=== PATIENT | female | born 1980 | race Caucasian/White ===

== ENCOUNTER → 2018-07-12 14:25 | Outpatient (CLI) | payer BC, MEDICAID, SELFPAY ==
--- NOTE | 2018-07-12 14:30 | MRI_ITS ---
STUDY: MRI BRAIN WITH AND WITHOUT CONTRAST REASON FOR EXAM: Female, 37 years old. optic neuritis, LOSS OF VISION R EYE AFTER HAVING MIGRAINE 07/06/18 No known TECHNIQUE: Standardized multiplanar fat and water weighted pulse sequences were obtained. 7 ml of Gadavist contrast material was administered intravenously for the contrast portion of the examination. # of Images: 334 COMPARISON: None. FINDINGS: Normal size of the ventricles and extra-axial spaces for the patient's age. Normal white matter tracts of the supratentorial brain. Normal bilateral basal ganglia. Normal thalami. There is no extra-axial fluid accumulation. Normal flow voids within the major intracranial circulation suggesting patency by spin echo criteria. Normal venous enhancement. There is no enhancing intra-axial or extra-axial abnormality. Normal sella turcica, pituitary gland, infundibular stalk, optic chiasm and hypothalamus. Normal tectal plate and pineal gland. Normal midbrain, laura and medulla. Normal cerebellum. Normal basal cisterns. Normal bilateral temporal bones. Normal bilateral internal auditory canals. No demonstrated orbital abnormality, within the constraints of a routine brain study. There is mucoperiosteal inflammatory disease of the paranasal sinuses consistent with mild chronic sinusitis. Normal calvarium and skull base. Normal visualized soft tissue structures. Normal visualized upper cervical spine. MRI/Brain W/WO Contrast IMPRESSION: There is mucoperiosteal inflammatory disease of the paranasal sinuses consistent with mild chronic sinusitis. There is no abnormal enhancement of the right optic nerve. There is no evidence of acute or subacute ischemic lesion. Electronically Signed: Kwasi Rose MD at 10:42 EDT Tel , Service support ,
[2018-07-12 16:14] LABS: Absolute Lymphocyte Count 2.35 X10^3/ul (0.83-4.51); Absolute Neutrophil Count 5.7 X10^3/uL (2.0-7.7); Basophil# 0.02 X10^3/uL; Basophil% 0.2 % (0-1); Eosinophil# 0.12 X10^3/uL; Eosinophils% 1.4 % (0-5); Hematocrit 39.1 % (37-47); Hemoglobin 12.9 g/dl (12.0-15.0); Lymphocyte # 2.35 X10^3/ul (4.0); Lymphocyte % 26.6 % (19-41); Mean Corpuscular Hgb 28.1 pg (27.0-32.0); Mean Corpuscular Volume 85.2 fL (81-99); Mean Platelet Vol. 11.3 fl (6.2-12.0); Monocyte# 0.59 X10^3/uL; Monocyte% 6.7 % (0-10); Neutrophil # 5.73 X10^3/uL (2.7-7.7); Neutrophil % 64.9 % (47-70); Platelet Count 315 K/mm3 (150-450); RBC Distribution Width CV 12.6 % (11.6-14.6); RBC Distribution Width SD 38.1 fl (35.1-43.9); Red Blood Count 4.59 M/mm3 (4.2-5.4); White Blood Count 8.8 K/mm3 (4.4-11.0)
[2018-07-12 16:16] LABS: POSITIVE COUNT NO; POSITIVE DIFFERENTIAL NO; POSITIVE MORPHOLOGY NO
[2018-07-12 16:39] LABS: CRP 6.65 mg/L (0.0-3.0)
[2018-07-12 16:59] LABS: Erythrocyte Sedimentation Rate 9 mm/hr (0-20)
== END ==
PROVIDERS: Family Provider Family Medicine; PCP Family Medicine; Referring Provider Ophthalmology; Visit Provider Ophthalmology
DX: H46.9 Unspecified optic neuritis (principal)
CPT/HCPCS: 36415; 70553; 85025; 85652; 86140; A9585

== ENCOUNTER 2019-01-24 06:32 | Emergency (ER) | payer OTHER, SELFPAY ==
[2019-01-24 06:33] VITALS: BP 175/95; PULSE 85; RESP 18; TEMP 36.3; O2SAT 100; BMI 36.1
[2019-01-24] MEDS: 0.9% Normal Saline 1,000 ML 1000 ML IV (06:51)
[2019-01-24] MEDS: HYDROmorphone 0.5 MG/0.5 ML SYRINGE IV (06:52)
[2019-01-24] MEDS: Ondansetron 4 MG/2 ML Vial IV (06:52)
[2019-01-24 06:55] LABS: Absolute Lymphocyte Count 1.22 X10^3/ul (0.83-4.51); Absolute Neutrophil Count 5.7 X10^3/uL (2.0-7.7); Basophil# 0.01 X10^3/uL; Basophil% 0.1 % (0-1); Eosinophil# 0.04 X10^3/uL; Eosinophils% 0.5 % (0-5); Lymphocyte # 1.22 X10^3/ul (4.0); Lymphocyte % 16.5 % (19-41); Mean Corp Hgb Conc 33.3 g/gl (32-36); Mean Corpuscular Hgb 27.5 pg (27.0-32.0); Mean Corpuscular Volume 82.4 fL (81-99); Mean Platelet Vol. 9.9 fl (6.2-12.0); Monocyte# 0.45 X10^3/uL; Monocyte% 6.1 % (0-10); Neutrophil # 5.65 X10^3/uL (2.7-7.7); Neutrophil % 76.7 % (47-70); POSITIVE COUNT NO; POSITIVE DIFFERENTIAL NO; POSITIVE MORPHOLOGY NO; Platelet Count 270 K/mm3 (150-450); RBC Distribution Width CV 12.5 % (11.6-14.6); RBC Distribution Width SD 38.1 fl (35.1-43.9); White Blood Count 7.4 K/mm3 (4.4-11.0)
[2019-01-24 07:12] LABS: AST(SGOT) 219 U/L (15-37); Alanine Aminotransfer ALT/SGPT 452 U/L (13-56); Albumin, Serum 4.2 g/dL (3.2-5.0); Alkaline Phosphatase 589 U/L (45-117); Anion Gap 8 (5-15); BUN 10 mg/dL (7-18); Bilirubin, Direct 1.06 mg/dL (0.00-0.30); Calcium,Total 9.5 mg/dL (8.5-10.1); Chloride 101 mmol/L (98-107); Creatinine, Serum 0.71 mg/dL (0.55-1.02); EST Glomerular Filtration Rate 97 mL/min (>60); Est Glom Filt Rate - Afr Amer 118 mL/min (>60); Globulin 3.5 g/dL (2.2-4.2); Glucose 128 mg/dL (74-106); Lipase 81 U/L (73-393); Potassium 3.3 mmol/L (3.5-5.1); Protein, Total 7.7 g/dL (6.4-8.2); Sodium Level 139 mmol/L (136-145)
--- NOTE | 2019-01-24 07:25 | ED.DCSUM_ITS ---
- ER Visit Summary Date of Service: 01/24/19 Chief Complaint: Abdominal pain, nausea and vomiting History of Present Illness: The patient is a 38 F with a 2 to 3-week history of intermittent epigastric pain. She states it feels like prior gallbladder attacks with her gallbladder is been out for quite some time. It is not necessarily worsened by food. She does report nausea and vomiting when the pain is severe. Physical Examination: Vital signs significant for blood pressure of 175/95, otherwise unremarkable. Patient sitting upright in bed no acute distress. She does appear uncomfortable. Heart is regular rate and rhythm. Lung sounds are clear. Abdomen is soft with moderate tenderness to the epigastric area. No guarding or rebound at this time. Hypoactive bowel sounds are present. Test Results: CBC is unremarkable. Chemistry studies significant only for potassium slightly low at 3.3. LFTs are abnormal. Total bili is 1.3, direct bili 1.06, alk phos 589. ALT is 452 and AST is 219. Lipase is normal. Emergency Department Course and Treatment: Patient is treated with Dilaudid, Zofran, and IV fluids. Upon completion of her abnormal liver studies a hepatitis panel has been added. Right upper quadrant ultrasound will be obtained. This will be signed out to oncoming physician for final re-eval. Treatment Plan: [] Disposition: Pending imaging studies Impression: Hepatitis This note was generated with [employer] dictation software. It may contain incorrect words, spelling, and punctuation that were not noted in review of the chart prior to signing ED Disposition - Plan for ED Patient: Referrals: Beny Mayorga MD [Primary Care Provider] -
--- NOTE | 2019-01-24 07:37 | US_ITS ---
STUDY: ABDOMINAL ULTRASOUND - RIGHT UPPER QUADRANT REASON FOR VISIT: Female, 38 years old. Elevated liver function tests. TECHNIQUE: Ultrasound evaluation of the right upper quadrant was performed with real-time and static kahn-scale imaging. TECHNICAL QUALITY: Adequate. COMPARISON: None. FINDINGS: Liver: The liver measures 15.0 cm. There is increased echogenicity consistent with fatty infiltration. The bile ducts are within normal limits. There is hepatic color flow. The direction of portal flow is hepatopetal. There is no demonstrated mass lesion. Gallbladder: The patient is status post cholecystectomy. Common Bile Duct (C.B.D.): The common bile duct measures 7 mm. Pancreas: Normal size of the head, body and tail of the pancreas. There is normal echogenicity of the pancreas. There is no demonstrated pancreatic mass or cyst. Right Kidney: Normal size of the right kidney. The right kidney measures 11.2 cm. Normal renal cortex. The right cortex measures 1.5 cm. There is no demonstrated renal mass or cyst. There is no right hydronephrosis. US/Abdomen Limited IMPRESSION: Fatty infiltration of the liver. Prior cholecystectomy. Electronically Signed: Lee Escamilla MD at 8:18 EDT , Service support ,
--- NOTE | 2019-01-24 08:57 | ED.DEP ---
ED Disposition - Plan for ED Patient: Instructions: Hepatitis Panel, Liver Panel, ED Hepatitis Viral Type A, ED Hepatitis Viral Type B, ED Hepatitis Viral Type C Referrals: Beny Mayorga MD [Primary Care Provider] - Additional Instructions: Follow-up with your outpatient provider
[2019-01-24] MEDS: 0.9% Normal Saline 1,000 ML 150 ML IV (09:05)
[2019-01-24 09:29] VITALS: BP 128/73; PULSE 88; RESP 18; O2SAT 97
[2019-01-28 09:07] LABS: HEPATITIS B SURFACE AG Negative (Negative); Hepatitis A AB, Total Positive (Negative); Hepatitis A IgM Antibody Negative (Negative); Hepatitis B Core AB IgM Negative (Negative); Hepatitis B Core Ab Total Negative (Negative); Hepatitis C Ab <0.1 s/co ratio (0.0-0.9)
[2019-01-28 11:55] LABS: Hep B Surface Antibodies Non Reactive (.)
== END 2019-01-24 09:31 | disposition home or self-care (01) ==
PROVIDERS: Emergency Provider Emergency Medicine; Family Provider Family Medicine; PCP Family Medicine
DX: K75.9 Inflammatory liver disease, unspecified (principal); I10 Essential (primary) hypertension; K21.9 Gastro-esophageal reflux disease without esophagitis; Z87.891 Personal history of nicotine dependence
CPT/HCPCS: 76705; 80048; 80076; 82542; 83690; 85025; 86704; 86705; 86706; 86708; 86709; 86803; 87340; 96361; 96374; 96375; 99283; J7030; A4216; J2405

== ENCOUNTER 2019-11-25 06:25 | Emergency (ER) | payer OTHER, SELFPAY ==
[2019-11-25 06:26] VITALS: PULSE 63; RESP 18; TEMP 36.8; O2SAT 99; BMI 36.5
[2019-11-25 06:29] VITALS: BP 123/80
--- NOTE | 2019-11-25 06:37 | ED.VIS.GI ---
History of Present Illness Chief Complaint: Abd Pain Informant: Patient - Abdominal Pain/Flank Pain Onset: Hours - 4 Context: Gradual Onset - about an hour after eating a meal Timing: Continuous Quality: Aching Location: Epigastric Current Severity: Moderate Maximum Severity: Moderate Worsened by: Nothing Relieved by: Nothing - tried ibuprofen 800mg - Nausea/Vomiting/Emesis GI Symptom: Nausea. Negative for: Vomiting - Diarrhea/Melena/Hematochezia GI Symptom: Diarrhea. Negative for: Melena, Hematochezia Stool Quality: Loose Severity: Mild Associated Symptoms: Negative for: Dysuria, Frequency, Hematuria, Urgency Narrative: Patient presents saying that I feel like I am having a gallbladder attack but my gallbladder was already taking. She is having epigastric pain it started about an hour after eating it radiates straight through to her back. Some nausea but no vomiting. As a separate issue, she is also having a left frontal and retro-orbital headache that has been there for 1-2 days. It has waxed and waned, improved with ibuprofen, but is still persistent. She has had headaches like these before. She denies any thunderclap or acute neurologic symptoms or changes in her vision. No syncope, chest pain, shortness of breath. - Past Medical History (1) HTN (hypertension) Status: Chronic Past Medical History - Allergies and Home Meds Allergies/Adverse Reactions: Allergies morphine Allergy (Verified 11/25/19 06:25) Other hallunications codeine Adverse Reaction (Verified 11/25/19 06:25) Vomiting Primary Care Physician: Beny Mayorga MD [Primary Care Provider] - Surgical History: cholecystectomy Smoking Status: Never smoker Alcohol: None Review of Systems General: Denies: Chills, Fever, Sweats Eyes: Denies: Visual changes - bilaterally, Diplopia ENT: Denies: Rhinorrhea, Sore throat Cardiovascular: Denies: Chest pain, Palpitations Respiratory: Denies: Dyspnea, Cough, Dyspnea on exertion Gastrointestinal: Reports: Abdominal pain, Nausea, Diarrhea - loose, chronic. Denies: Vomiting, Melena, Hematochezia Genitourinary: Denies: Dysuria, Hematuria, Frequency Musculoskeletal: Reports: Back pain. Denies: Extremity Pain Skin: Denies: Rash, Wounds Neurological: Reports: Headache. Denies: Weakness, Numbness Physical Exam Vital Signs/Narrative: Vital Signs Temp Pulse Resp BP Pulse Ox 11/25/19 06:29 123/80 H 11/25/19 06:26 98.2 F 63 18 99 Inital Vital Signs reviewed: Yes General: Well nourished, Well developed, No Acute Distress Head: Normocephalic, Atraumatic Eyes: Perrl, EOMI ENT: Moist mucous membranes, No rhinorrhea Neck: Supple, Nontender Cardiovascular: Regular rate, Regular rhythm, No murmurs. Negative for: Tachycardia Respiratory: No distress, CTA bilaterally, Chest nontender Abdomen: Soft, Nondistended, Normal bowel sounds, Tender - epigastric and LUQ; otherwise, NT. Negative for: Guarding, Rebound tenderness, Pulsatile mass Back: Nontender, Normal Inspection. Negative for: CVA tenderness Extremities: Nontender, No edema Skin: Normal color, No rash, No Trauma Neurological: Alert, Oriented x3, Cranial nerves II-XII grossly intact, Normal Strength, Normal Sensation, Normal Gait Psychological: Normal affect, Normal Mood Diagnostic/Tx/Re-eval Laboratory Tests 11/25/19 11/25/19 Range/Units 06:55 06:55 WBC 10.2 (4.4-11.0) K/mm3 RBC 4.46 (4.2-5.4) M/mm3 Hgb 12.5 (12.0-15.0) g/dL Hct 38.6 (37-47) % MCV 86.5 (81-99) fL MCH 28.0 (27.0-32.0) pg MCHC 32.4 (32-36) g/dL RDW Std Deviation 38.3 (35.1-43.9) fl RDW Coeff of Elsie 12.2 (11.6-14.6) % Plt Count 249 (150-450) K/mm3 MPV 10.1 (6.2-12.0) fl Immature Gran % (Auto) 0.300 (0.0-0.9) % Neut % (Auto) 73.0 H (47-70) % Lymph % (Auto) 20.1 (19-41) % [place] % (Auto) 5.0 (0-10) % Eos % (Auto) 1.2 (0-5) % Baso % (Auto) 0.4 (0-1) % Absolute Neuts (auto) 7.5 (2.0-7.7) X10^3/uL Absolute Lymphs (auto) 2.06 (0.83-4.51) X10^3/uL Nucleated RBC % 0 (0-5) % Sodium 141 (136-145) mmol/L Potassium 3.8 (3.5-5.1) mmol/L Chloride 107 (98-107) mmol/L Carbon Dioxide 26.0 (21.0-32.0) mmol/L Anion Gap 8 (5-15) BUN 14 (7-18) mg/dL Creatinine 0.67 (0.55-1.02) mg/dL Estim Creat Clear Calc 140.95 ml/min Est GFR (MDRD) Af Amer 126 (>60) mL/min Est GFR (MDRD) Non-Af 104 (>60) mL/min BUN/Creatinine Ratio 20.9 H (10-20) RATIO Glucose 93 (74-106) mg/dL Calcium 9.3 (8.5-10.1) mg/dL Total Bilirubin 0.20 (0.20-1.00) mg/dL AST 27 (15-37) U/L ALT 35 (13-56) U/L Alkaline Phosphatase 124 H (45-117) U/L Total Protein 6.9 (6.4-8.2) g/dL Albumin 3.7 (3.2-5.0) g/dL Globulin 3.2 (2.2-4.2) g/dL Albumin/Globulin Ratio 1.2 (0.9-2.4) RATIO Lipase 82 (73-393) U/L - Medical Decision Making Plan is to obtain labs and rule out acute pancreatitis if possible, treat her empirically with IV fluids, Reglan for nausea and headache, and a GI cocktail and reevaluate. Patient feels much better after these medications. She still has a headache, but she declines offer for other analgesics and is okay going home. Labs were normal. Patient is reassured. Discussed reasons to return. ED Disposition - Plan for ED Patient: Disposition: Home or Assisted Living Diagnosis: Acute gastritis without bleeding, Headache Instructions: GASTRITIS vs. ULCER Referrals: Beny Mayorga MD [Primary Care Provider] - 3-5 Days if not improving
[2019-11-25 07:03] LABS: Absolute Lymphocyte Count 2.06 X10^3/uL (0.83-4.51); Absolute Neutrophil Count 7.5 X10^3/uL (2.0-7.7); Basophil# 0.04 X10^3/uL; Basophil% 0.4 % (0-1); Eosinophil# 0.12 X10^3/uL; Eosinophils% 1.2 % (0-5); Hematocrit 38.6 % (37-47); Hemoglobin 12.5 g/dL (12.0-15.0); Lymphocyte # 2.06 X10^3/ul (4.0); Lymphocyte % 20.1 % (19-41); Mean Corp Hgb Conc 32.4 g/dL (32-36); Mean Corpuscular Volume 86.5 fL (81-99); Mean Platelet Vol. 10.1 fl (6.2-12.0); Monocyte# 0.51 X10^3/uL; NRBC Flagged by Analyzer 0 % (0-5); Neutrophil # 7.48 X10^3/uL (2.7-7.7); Platelet Count 249 K/mm3 (150-450); RBC Distribution Width CV 12.2 % (11.6-14.6); RBC Distribution Width SD 38.3 fl (35.1-43.9); Red Blood Count 4.46 M/mm3 (4.2-5.4); White Blood Count 10.2 K/mm3 (4.4-11.0)
[2019-11-25] MEDS: Mag Hydrox/Al Hydrox/Simeth 30 ML UDC PO (07:06)
[2019-11-25] MEDS: Metoclopramide 10 MG/2 ML Vial IV (07:06)
[2019-11-25 07:27] LABS: ALB/GLOB Ratio 1.2 RATIO (0.9-2.4); AST(SGOT) 27 U/L (15-37); Alanine Aminotransfer ALT/SGPT 35 U/L (13-56); Albumin, Serum 3.7 g/dL (3.2-5.0); Alkaline Phosphatase 124 U/L (45-117); Anion Gap 8 (5-15); BUN 14 mg/dL (7-18); BUN/Creat Ratio 20.9 RATIO (10-20); Calcium,Total 9.3 mg/dL (8.5-10.1); Chloride 107 mmol/L (98-107); Creatinine, Serum 0.67 mg/dL (0.55-1.02); EST Glomerular Filtration Rate 104 mL/min (>60); Est Glom Filt Rate - Afr Amer 126 mL/min (>60); Estimated Creatinine Clearance 140.95 ml/min; Globulin 3.2 g/dL (2.2-4.2); Glucose 93 mg/dL (74-106); Lipase 82 U/L (73-393); Potassium 3.8 mmol/L (3.5-5.1); Protein, Total 6.9 g/dL (6.4-8.2); Sodium Level 141 mmol/L (136-145)
== END 2019-11-25 08:12 | disposition home or self-care (01) ==
PROVIDERS: Emergency Provider Emergency Medicine; PCP Family Medicine
DX: K29.00 Acute gastritis without bleeding (principal); Z88.5 Allergy status to narcotic agent; Z90.49 Acquired absence of other specified parts of digestive tract; I10 Essential (primary) hypertension; R51 Headache
CPT/HCPCS: 80053; 83690; 85025; 99285; A4216

== ENCOUNTER → 2020-04-08 12:25 | Outpatient (CLI) | payer OTHER, SELFPAY ==
[2020-02-28 09:03] VITALS: BMI 36.5
== END ==
PROVIDERS: PCP Family Medicine; Referring Provider Family Medicine; Visit Provider Family Medicine
DX: Z20.828 Contact with and (suspected) exposure to other viral communicable diseases (principal)
CPT/HCPCS: 87635; G2023; U0003

== ENCOUNTER 2020-12-08 11:39 | Emergency (ER) | payer OTHER, SELFPAY ==
[2020-02-28 09:03] VITALS: BMI 36.5
[2020-12-08 11:40] VITALS: BP 175/100; PULSE 71; RESP 23; TEMP 37.1; O2SAT 98; BMI 38.2
--- NOTE | 2020-12-08 11:52 | EKG12_ITS ---
Test Reason : CP Blood Pressure : / mmHG Vent. Rate : 076 BPM Atrial Rate : 076 BPM P-R Int : 156 ms QRS Dur : 082 ms QT Int : 402 ms P-R-T Axes : 054 023 048 degrees QTc Int : 452 ms Normal sinus rhythm Normal ECG Confirmed by KATIE HOUSE, MICHAEL ([id number]), web editor RAYMUNDO MENCHACA ([id number]) on 12/10/2020 12:54:13 PM Referred By: Confirmed By:MICHAEL WILSON MD
--- NOTE | 2020-12-08 11:52 | ED.DCSUM_ITS ---
- ER Visit Summary Date of Service: 12/08/20 Chief Complaint: [Chest pain] History of Present Illness: The patient is a 40 F [presents to the emergency department complaint of chest pain that started a week ago. Patient describes intermittent pain as sharp and dull at times that starts in her sternal area and radiates straight through to the back. Patient states the pain can last up to a couple of hours. The pain is not exertional. She denies any exertional dyspnea. Yesterday she had heartburn and so she took some Zantac but did not seem to help the discomfort at all. She denies recent travel or surgery. No history of PE or DVT. Patient does have history of hypertension and history of PVCs. Her last stress test was over 10 years ago. Family history of heart disease includes her grandfather who of a massive HI in his 50s. Patient does not smoke and she denies any illicit drug use. She herself does not have any history of PE or DVT.] Patient currently is not experiencing any pain. Physical Examination: [HEENT-PERRLA, EOMI. Cranial nerves II through XII grossly intact. TMs clear. Mucous membranes moist. No adenopathy. Cardiovascular-regular rate and rhythm without murmur or ectopy Lungs-clear to auscultation, chest wall stable without crepitus or subcu emphysema Abdomen-normoactive bowel sounds, soft, nontender, no rebound or rigidity, no peritoneal signs. Extremities-intact ?4, normal range of motion, normal pulses, atraumatic] Test Results: [EKG obtained on arrival showed a sinus rhythm with a ventricular rate of 78 bpm with no acute ST segment changes. CBC with it was normal. Chemistries normal. Troponin was less than 0.015. Lipase was 81. D-dimer was normal. Chest x-ray 1 view obtained interpreted by myself as no acute disease process without evidence of pneumomediastinum, pneumothorax, or other acute disease process. Radiology was in agreement.] Emergency Department Course and Treatment: [IV line established on arrival. Patient was given aspirin on arrival. Patient placed on a youth nutritional monitor.] Treatment Plan: [Patient's heart score is a 1 and I feel that she is very low risk for acute coronary syndrome. Patient's had pain for a week that clinically sounds atypical and is nonexertional. Patient advised to follow-up with her primary care physician within the next 3 to 5 days. Patient advised to return if worsening pain, exertional dyspnea, or condition should worsen anyway.] Disposition: [Discharged home in stable condition] Impression: [Pain-etiology uncertain] This note was generated with [employer] dictation software. It may contain incorrect words, spelling, and punctuation that were not noted in review of the chart prior to signing ED Disposition - Plan for ED Patient: Referrals: Beny Mayorga MD [Primary Care Provider] -
[2020-12-08 11:55] VITALS: O2SAT 98
[2020-12-08] MEDS: 0.9% Normal Saline 1,000 ML 150 ML IV (11:58)
[2020-12-08] MEDS: Aspirin 81 MG TAB.CHEW 324 MG PO (11:58)
[2020-12-08 12:04] LABS: Absolute Lymphocyte Count 2.61 X10^3/uL (0.83-4.51); Absolute Neutrophil Count 6.1 X10^3/uL (2.0-7.7); Basophil# 0.05 X10^3/uL; Basophil% 0.5 % (0-1); Eosinophil# 0.09 X10^3/uL; Eosinophils% 0.9 % (0-5); Hematocrit 42.9 % (37-47); Lymphocyte # 2.61 X10^3/ul (4.0); Lymphocyte % 27.2 % (19-41); Mean Corp Hgb Conc 32.6 g/dL (32-36); Mean Corpuscular Hgb 27.7 pg (27.0-32.0); Mean Platelet Vol. 10.3 fl (6.2-12.0); Monocyte# 0.69 X10^3/uL; Monocyte% 7.2 % (0-10); NRBC Flagged by Analyzer 0 % (0-5); Neutrophil # 6.09 X10^3/uL (2.7-7.7); Neutrophil % 63.6 % (47-70); Platelet Count 353 K/mm3 (150-450); RBC Distribution Width CV 11.9 % (11.6-14.6); RBC Distribution Width SD 36.6 fl (35.1-43.9); Red Blood Count 5.05 M/mm3 (4.2-5.4); White Blood Count 9.6 K/mm3 (4.4-11.0)
[2020-12-08 12:09] LABS: D-Dimer Quantitative (DVT/PE) <= 0.27 FEU/ug/m (0.27-0.49)
--- NOTE | 2020-12-08 12:10 | RAD_ITS ---
STUDY: X-RAY CHEST REASON FOR EXAM: Female, 40 years old. chest pain TECHNIQUE: Single AP portable view of the chest. COMPARISON: 12/29/2015 FINDINGS: The lungs are clear and expanded. There is no demonstrated pleural abnormality. Normal size heart. Normal mediastinum and jorden. Normal visualized pulmonary arteries. Normal visualized aortic arch and descending thoracic aorta. Normal visualized thoracic spine. Normal visualized ribs, clavicles, and shoulders. There is no demonstrated abnormality of the visualized soft tissue structures of the upper abdomen. RAD/Chest 1 View (Portable) IMPRESSION: Normal x-ray examination of the chest. Electronically Signed: Flash Card MD at 12:25 EDT Tel , Service support ,
[2020-12-08 12:16] LABS: Anion Gap 6 (5-15); BUN 16 mg/dL (7-18); BUN/Creat Ratio 27.1 RATIO (10-20); Calcium,Total 9.3 mg/dL (8.5-10.1); Chloride 104 mmol/L (98-107); Creatinine, Serum 0.59 mg/dL (0.55-1.02); EST Glomerular Filtration Rate 120 mL/min (>60); Est Glom Filt Rate - Afr Amer 145 mL/min (>60); Estimated Creatinine Clearance 166.28 ml/min; Glucose 112 mg/dL (74-106); Lipase 81 U/L (73-393); Potassium 3.7 mmol/L (3.5-5.1); Sodium Level 138 mmol/L (136-145)
--- NOTE | 2020-12-08 12:31 | ED.DEP ---
ED Disposition - Plan for ED Patient: Instructions: ED Chest Pain, Uncertain Cause Referrals: Beny Mayorga MD [Primary Care Provider] - 3-5 Days
[2020-12-08 12:34] VITALS: BP 160/76; PULSE 62; RESP 23; O2SAT 98
== END 2020-12-08 12:37 | disposition home or self-care (01) ==
LOC: ED 12:37
PROVIDERS: Emergency Provider Emergency Medicine; PCP Family Medicine
DX: R07.9 Chest pain, unspecified (principal); I10 Essential (primary) hypertension; Z82.49 Family history of ischemic heart disease and other diseases of the circulatory system
CPT/HCPCS: 71045; 80048; 83690; 84484; 85025; 85379; 93005; 96360; 99285; J7030; A4216

== ENCOUNTER 2021-04-29 10:45 | Emergency (ER) | payer OTHER, SELFPAY ==
[2021-04-29 10:46] VITALS: BP 176/110; PULSE 88; RESP 16; TEMP 37.4; O2SAT 98; BMI 38.2
--- NOTE | 2021-04-29 10:52 | ED.RN ---
dr. lynch made aware of pt sx, reports he is aware as pt was sent from dr. zimmerman's office. per dr. hobson no stroke alert at this time. pt to be evaluated.
--- NOTE | 2021-04-29 11:35 | CT_ITS ---
STUDY: CT BRAIN WITHOUT CONTRAST REASON FOR EXAM: Female, 40 years old. vision changes right weakness RADIATION DOSAGE (If Supplied By Facility): CTDIvol = ( 44.99 ) mGy, DLP = ( 762.36 ) mGycm TECHNIQUE: Transaxial CT imaging of the brain was performed without administration of intravenous contrast material. Individualized dose optimization techniques were used for this CT. COMPARISON: No relevant priors. FINDINGS: Normal soft tissue structures. Normal calvarium. Normal size ventricles and extra-axial spaces for the patient''s age. Normal white matter tracts of the cerebral hemispheres. Normal basal ganglia and thalami. Normal brainstem. Normal cerebellum. There is no intracranial hemorrhage. There are no findings of an acute ischemic infarction. Normal visualized paranasal sinuses. CT/Brain/Head without Contrast IMPRESSION: Normal unenhanced CT scan of the brain. Electronically Signed: Flash Card MD at 11:48 EDT Tel , Service support ,
[2021-04-29 11:49] LABS: Absolute Lymphocyte Count 2.08 X10^3/uL (0.83-4.51); Basophil# 0.04 X10^3/uL; Basophil% 0.5 % (0-1); Eosinophils% 1.1 % (0-5); Hematocrit 40.5 % (37-47); Hemoglobin 13.3 g/dL (12.0-15.0); Lymphocyte # 2.08 X10^3/ul (0.83-4.51); Lymphocyte % 23.6 % (19-41); Mean Corp Hgb Conc 32.8 g/dL (32-36); Mean Corpuscular Hgb 27.7 pg (27.0-32.0); Mean Corpuscular Volume 84.4 fL (81-99); Mean Platelet Vol. 10.1 fl (6.2-12.0); Monocyte# 0.54 X10^3/uL; Monocyte% 6.1 % (0-10); NRBC Flagged by Analyzer 0 % (0-5); Neutrophil # 6.03 X10^3/uL (2.7-7.7); Neutrophil % 68.4 % (47-70); Platelet Count 311 K/mm3 (150-450); RBC Distribution Width CV 11.9 % (11.6-14.6); RBC Distribution Width SD 36.8 fl (35.1-43.9); White Blood Count 8.8 K/mm3 (4.4-11.0)
[2021-04-29 12:00] LABS: Anion Gap 10 (5-15); BUN 14 mg/dL (7-18); BUN/Creat Ratio 23.1 RATIO (10-20); Calcium,Total 9.3 mg/dL (8.5-10.1); Chloride 104 mmol/L (98-107); Creatinine, Serum 0.61 mg/dL (0.55-1.02); EST Glomerular Filtration Rate 116 mL/min (>60); Est Glom Filt Rate - Afr Amer 140 mL/min (>60); Estimated Creatinine Clearance 160.83 ml/min; Glucose 125 mg/dL (74-106); Potassium 3.5 mmol/L (3.5-5.1); Sodium Level 141 mmol/L (136-145)
[2021-04-29 12:01] VITALS: BP 186/86; PULSE 58; RESP 16
--- NOTE | 2021-04-29 12:44 | EDS_ITS ---
HPI History of Present Illness Chief Complaint: Vision Prob Informant: patient and family Narrative Narrative: Patient presents with multiple symptoms. She states she has had these in the past. She was treated and evaluated about 2 years ago for almost the exact same symptoms including visual loss. They were suspicious as this was MS. She was given steroids IV as an outpatient for a few days. She did very well. Now the last 6 or so months she has developed sensation of almost muscle spasm and cramps but it is not painful. This is all on the right side of her body. She has had a visual field cut at the lower right side of her vision. She has had nonspecific dizziness and lightheadedness but has never fallen. She was seen by her physician today who referred her for further evaluation and CT scan. She states her symptoms wax and wane. But they do tend to increase over the last 6 months. Nothing specifically makes them better or worse. She does have a family history of multiple sclerosis. There is also a family history of ALS and spina bifida. [facility] Medical History Hypertension Home Medications ascorbic acid (vitamin C) [Vitamin C] 500 mg PO DAILY@0800 12/26/15 [History Last Taken Unknown] cyanocobalamin (vitamin B-12) 500 mcg PO DAILY@0800 12/26/15 [History Last Taken Unknown] hydrochlorothiazide 25 mg PO DAILY 12/26/15 [History Last Taken Unknown] vitamin E (dl, acetate) 400 units PO DAILY 12/26/15 [History Last Taken Unknown] Ranitidine [Zantac] 150 mg PO DAILY 01/24/19 [History Last Taken Unknown] metoprolol tartrate 25 mg PO DAILY 11/25/19 [History Last Taken Unknown] Allergy/AdvReac Type Severity Reaction Status Date / Time morphine Allergy Other Verified 04/29/21 10:46 codeine AdvReac Vomiting Verified 04/29/21 10:46 Social History Smoking Status: Never smoker ROS ROS ED Constitutional Constitutional ED: Denies chills, fever(s) or weight loss Eyes Eyes: Reports blurry vision and change in vision; Denies diplopia ENT ENT ED: Denies rhinorrhea Cardiovascular Cardiovascular: Denies chest pain or palpitations Respiratory/Chest Respiratory/Chest: Denies cough or dyspnea Gastrointestinal Gastrointestinal: Denies nausea or vomiting Genitourinary Genitourinary ED: Reports other Details: No urinary retention or incontinence. ; Denies dysuria, hematuria or urinary frequency Musculoskeletal Musculoskeletal: Reports other Details: See history of present illness. ; Denies back pain or neck pain Integumentary Denies rash Neurologic Neurologic: Reports paresthesias; Denies headache(s) Endocrine Endocrinology: Denies polydipsia or polyuria Allergic/Immunologic Allergic/Immunologic ED: Denies urticaria EXAM Physical Exam Const Vital Signs: 04/29/21 10:46 04/29/21 12:01 Temperature 99.3 F H Temperature Source Temporal Pulse Rate 88 58 L Respiratory Rate 16 16 Blood Pressure 176/110 H 186/86 H Blood Pressure Mean 132 119 Pulse Ox 98 Oxygen Delivery Method Room Air Positive well nourished and well developed General Appearance ED: well developed and NAD HEENT Reports moist mucous membranes Negative for trauma or tenderness Eyes PERRL and EOMs intact bilaterally Eyes Narrative: Pupils are equal. No photophobia. Range of motion of the eyes are equal. No lid droop. Funduscopic exam is a little difficult to perform. However, I did not see anything markedly abnormal on direct ophthalmoscope exam. With confrontation she does appear to have the least some degree of decreased visual acuity in the lower outer quadrant of the right eye only. She states she had this a couple years ago. However, it has now come back again. General Eye ED: Negative for pale conjunctiva or scleral icterus Neck no lymphadenopathy and supple Chest Wall inspection of chest normal Resp normal respiratory effort and clear to auscultation bilaterally Cardio regular rate and regular rhythm GI normal to inspection, nondistended, normoactive bowel sounds and non-tender Palpation: soft Back/Spine no CVA tenderness Cervical Spine: Negative for cervical spine tenderness Thoracic Spine / Upper Back: Negative for thoracic spinal tenderness Lumbar Spine / Lower Back: Negative for lumbar spinal tenderness Extremity normal to inspection Neuro oriented x3 Neuro Narrative: There is no difference in sensation coordination or strength side to side. Only neurologic deficit that is found is the relative decreased acuity at the lower outer quadrant of the right eye only. Sensorium / Orientation: alert Motor Exam: strength 5/5 throughout Psych mental status grossly normal Skin no rashes or lesions noted MDM MDM MDM Narrative Medical decision making narrative: Patient's blood work shows minimal elevation of glucose at 125 which is not the cause of her symptoms likely. CBC is normal. CT scan of the head showed no acute process. I discussed options with the patient. She states she has had this in the past. This is a recurrent episode and has been going on some months. She did respond very well to steroids before. She was given out patient IV doses. I offered to give an initial dose here. She states she will then follow-up with her physician for further dosing. She is comfortable with this plan. Lab Data Attestation: I reviewed the patient's lab results. Labs: Laboratory Results - last 24 hr 04/29/21 04/29/21 11:30 11:30 WBC 8.8 RBC 4.80 Hgb 13.3 Hct 40.5 MCV 84.4 MCH 27.7 MCHC 32.8 RDW Std Deviation 36.8 RDW Coeff of Elsie 11.9 Plt Count 311 MPV 10.1 Immature Gran % (Auto) 0.300 Neut % (Auto) 68.4 Lymph % (Auto) 23.6 [place] % (Auto) 6.1 Eos % (Auto) 1.1 Baso % (Auto) 0.5 Absolute Neuts (auto) 6.0 Absolute Lymphs (auto) 2.08 Nucleated RBC % 0 Sodium 141 Potassium 3.5 Chloride 104 Carbon Dioxide 27.0 Anion Gap 10 BUN 14 Creatinine 0.61 Estim Creat Clear Calc 160.83 Est GFR (MDRD) Af Amer 140 Est GFR (MDRD) Non-Af 116 BUN/Creatinine Ratio 23.1 H Glucose 125 H Calcium 9.3 Radiography Diagnostic Testing: Radiology Impression Brain CT 04/29/21 11:35 IMPRESSION: Normal unenhanced CT scan of the brain. Electronically Signed: Flash Card MD at 11:48 EDT Tel , Service support , Discharge Plan Triage Chief Complaint: Vision Prob Other Complaint: Dizziness ED Provider: Bhupinder Zurita Dx/Rx/DC Orders Clinical Impression: Muscle cramps, Alteration in vision Instructions: Multiple Sclerosis Prescriptions: No Action cyanocobalamin (vitamin B-12) 500 MCG tablet 500 mcg PO DAILY@0800 RF: 0 ascorbic acid (vitamin C) [Vitamin C] 500 MG tablet 500 mg PO DAILY@0800 RF: 0 hydrochlorothiazide 25 MG tablet 25 mg PO DAILY RF: 0 vitamin E (dl, acetate) 400 UNITS capsule 400 units PO DAILY RF: 0 Ranitidine [Zantac] 150 MG tablet 150 mg PO DAILY RF: 0 metoprolol tartrate 25 MG tablet 25 mg PO DAILY RF: 0 Primary Care Provider: Beny Mayorga Referrals: Beny Mayorga MD [Primary Care Provider] - 1 Day Disposition Disposition: Home, Self Care
[2021-04-29 13:39] VITALS: PULSE 62; RESP 14; O2SAT 99
[2021-04-29 14:50] VITALS: BP 159/101; PULSE 65; RESP 16; O2SAT 97
== END 2021-04-29 14:53 | disposition home or self-care (01) ==
PROVIDERS: Emergency Provider Emergency Medicine; PCP Family Medicine
DX: R25.2 Cramp and spasm (principal); R42 Dizziness and giddiness; H53.8 Other visual disturbances; I10 Essential (primary) hypertension; Z82.0 Family history of epilepsy and other diseases of the nervous system
CPT/HCPCS: 70450; 80048; 85025; 96360; 99283; A4216; J2930

== ENCOUNTER 2021-08-25 10:21 | Emergency (ER) | payer OTHER, SELFPAY ==
[2021-08-25 10:22] VITALS: BP 171/107; PULSE 88; RESP 16; TEMP 36.4; O2SAT 95; BMI 38.6
[2021-08-25 11:01] VITALS: O2SAT 98
--- NOTE | 2021-08-25 11:01 | EKG12_ITS ---
Test Reason : CHEST OTHER Blood Pressure : / mmHG Vent. Rate : 069 BPM Atrial Rate : 069 BPM P-R Int : 164 ms QRS Dur : 078 ms QT Int : 414 ms P-R-T Axes : 043 011 027 degrees QTc Int : 443 ms Normal sinus rhythm Normal ECG Confirmed by GT HOUSE, DUSTIN ([id number]), medical transcription editor RAYMUNDO MENCHACA ([id number]) on 08/30/2021 9:32:19 AM Referred By: PL Confirmed By:TIMO DEL REAL MD
--- NOTE | 2021-08-25 11:01 | RAD_ITS ---
STUDY: X-RAY CHEST REASON FOR EXAM: Female, 41 years old. Chest pain TECHNIQUE: Single AP portable view of the chest. COMPARISON: None. FINDINGS: EKG electrodes are seen. The lungs are clear and expanded. There is no demonstrated pleural abnormality. Normal size heart. Normal mediastinum and jorden. Normal visualized pulmonary arteries. Normal visualized aortic arch and descending thoracic aorta. Normal visualized thoracic spine. Normal visualized ribs, clavicles, and shoulders. There is no demonstrated abnormality of the visualized soft tissue structures of the upper abdomen. RAD/Chest 1 View (Portable) IMPRESSION: Normal x-ray examination of the chest. Electronically Signed: Farooq Shipley MD at 12:34 EST , Service support ,
--- NOTE | 2021-08-25 11:02 | EDS_ITS ---
HPI History of Present Illness Chief Complaint: Chest Other Informant: patient Narrative Narrative: Patient presents with epigastric area pain that radiates to her back. She states she has episodes of this. They have been occurring since the of her second child was she was 18 years ago. There is no pattern to them in terms of duration time a day or anything else that she can ascertain. She has been seen for them multiple times and evaluated but no answer. She has had cholecystectomy. She has been seeing her doctor about these. He is doing work- up. She has further testing on the of this month. She comes in today because it exacerbated during work last night. She points epigastric area and then right in the same spot in her back toward the left side. She is not actually short of breath. She is not coughing. No fevers chills or sweats. It is very motion exacerbated. Food does bother it somewhat but motion bothers it even more. She has a history of GERD. It sounds like she may still be taking her Zantac. She does get acid taste in her mouth but it does not necessarily get worse with these symptoms. [facility] Medical History Hypertension Home Medications ascorbic acid (vitamin C) [Vitamin C] 500 mg PO DAILY@0800 12/26/15 [History Last Taken Unknown] cyanocobalamin (vitamin B-12) 500 mcg PO DAILY@0800 12/26/15 [History Last Taken Unknown] hydrochlorothiazide 25 mg PO DAILY 12/26/15 [History Last Taken Unknown] vitamin E (dl, acetate) 400 units PO DAILY 12/26/15 [History Last Taken Unknown] Ranitidine [Zantac] 150 mg PO DAILY 01/24/19 [History Last Taken Unknown] metoprolol tartrate 25 mg PO DAILY 11/25/19 [History Last Taken Unknown] Allergy/AdvReac Type Severity Reaction Status Date / Time morphine Allergy Other Verified 08/25/21 10:24 codeine AdvReac Vomiting Verified 08/25/21 10:24 Social History Smoking Status: Never smoker ROS ROS ED Constitutional Constitutional ED: Denies chills or fever(s) Eyes Eyes: Denies blurry vision ENT ENT ED: Denies rhinorrhea or sore throat Cardiovascular Cardiovascular: Denies chest pain, palpitations or racing heartbeat Respiratory/Chest Respiratory/Chest: Denies cough, dyspnea or sputum Gastrointestinal Gastrointestinal: Reports abdominal pain and nausea; Denies constipation, diarrhea, melena or vomiting Genitourinary Genitourinary ED: Denies dysuria Musculoskeletal Musculoskeletal: Reports back pain; Denies arthralgias, myalgias or neck pain Integumentary Denies rash Neurologic Neurologic: Denies headache(s), paresthesias or weakness Endocrine Endocrinology: Denies polydipsia Allergic/Immunologic Allergic/Immunologic ED: Denies mouth swelling or urticaria EXAM Physical Exam Const Vital Signs: 08/25/21 10:22 Temperature 97.5 F L Temperature Source Temporal Pulse Rate 88 Respiratory Rate 16 Blood Pressure 171/107 H Blood Pressure Mean 128 Pulse Ox 95 Oxygen Delivery Method Room Air Positive well nourished, well developed and obese General Appearance ED: well developed and NAD Nutritional Appearance: obese HEENT Reports moist mucous membranes Eyes General Eye ED: Negative for pale conjunctiva or scleral icterus Neck no JVD Chest Wall inspection of chest normal and palpation of chest normal Resp normal respiratory effort and clear to auscultation bilaterally Resp Narrative: No pain with a deep breath. Effort and Inspection: Negative for pain with movement Auscultation: Negative for rales, rhonchi or wheezes Cardio regular rate and regular rhythm GI normal to inspection, nondistended, normoactive bowel sounds and non-distended GI Narrative: Patient has very mild epigastric tenderness with no rebound or guarding but eating. No skin changes are noted. No herniation. Palpation: soft Back/Spine no CVA tenderness Extremity normal to inspection General Extremety ED: Negative for edema or tenderness General Extremity: Negative for edema Neuro oriented x3 Sensorium / Orientation: alert Motor Exam: strength abnormal Psych mental status grossly normal Skin no rashes or lesions noted Discharge Plan Triage Chief Complaint: Chest Other ED Provider: Bhupinder Zurita Dx/Rx/DC Orders Prescriptions: No Action cyanocobalamin (vitamin B-12) 500 MCG tablet 500 mcg PO DAILY@0800 RF: 0 ascorbic acid (vitamin C) [Vitamin C] 500 MG tablet 500 mg PO DAILY@0800 RF: 0 hydrochlorothiazide 25 MG tablet 25 mg PO DAILY RF: 0 vitamin E (dl, acetate) 400 UNITS capsule 400 units PO DAILY RF: 0 Ranitidine [Zantac] 150 MG tablet 150 mg PO DAILY RF: 0 metoprolol tartrate 25 MG tablet 25 mg PO DAILY RF: 0 Primary Care Provider: Beny Mayorga
[2021-08-25] MEDS: 0.9% Normal Saline 1,000 ML 1000 ML IV (11:13)
[2021-08-25] MEDS: Ketorolac 15 MG/ML Vial IV (11:13)
[2021-08-25 11:16] LABS: Absolute Lymphocyte Count 1.98 X10^3/uL (0.83-4.51); Absolute Neutrophil Count 7.8 X10^3/uL (2.0-7.7); Basophil# 0.06 X10^3/uL; Basophil% 0.6 % (0-1); Eosinophil# 0.06 X10^3/uL; Eosinophils% 0.6 % (0-5); Hematocrit 43.5 % (37-47); Hemoglobin 14.5 g/dL (12.0-15.0); Lymphocyte # 1.98 X10^3/ul (0.83-4.51); Lymphocyte % 18.6 % (19-41); Mean Corp Hgb Conc 33.3 g/dL (32-36); Mean Corpuscular Hgb 27.9 pg (27.0-32.0); Mean Corpuscular Volume 83.8 fL (81-99); Monocyte% 6.6 % (0-10); NRBC Flagged by Analyzer 0 % (0-5); Neutrophil # 7.81 X10^3/uL (2.7-7.7); Neutrophil % 73.1 % (47-70); Platelet Count 301 K/mm3 (150-450); RBC Distribution Width CV 12.1 % (11.6-14.6); Red Blood Count 5.19 M/mm3 (4.2-5.4); White Blood Count 10.7 K/mm3 (4.4-11.0)
[2021-08-25 11:33] LABS: ALB/GLOB Ratio 1.1 RATIO (0.9-2.4); AST(SGOT) 18 U/L (15-37); Alanine Aminotransfer ALT/SGPT 43 U/L (13-56); Albumin, Serum 3.9 g/dL (3.2-5.0); Alkaline Phosphatase 153 U/L (45-117); Anion Gap 10 (5-15); BUN 11 mg/dL (7-18); BUN/Creat Ratio 17.7 RATIO (10-20); Calcium,Total 9.4 mg/dL (8.5-10.1); Chloride 101 mmol/L (98-107); Creatinine, Serum 0.62 mg/dL (0.55-1.02); D-Dimer Quantitative (DVT/PE) <= 0.27 FEU/ug/m (0.27-0.49); EST Glomerular Filtration Rate 113 mL/min (>60); Est Glom Filt Rate - Afr Amer 136 mL/min (>60); Estimated Creatinine Clearance 158.19 ml/min; Globulin 3.7 g/dL (2.2-4.2); Glucose 101 mg/dL (74-106); Lipase 46 U/L (73-393); Potassium 3.8 mmol/L (3.5-5.1); Protein, Total 7.6 g/dL (6.4-8.2); Sodium Level 138 mmol/L (136-145); Troponin-I HS 5 pg/mL (3.0-54.0)
[2021-08-25 13:00] VITALS: BP 127/75; PULSE 64; RESP 16; O2SAT 97
[2021-08-25 13:34] VITALS: BP 126/72; PULSE 81; RESP 25
== END 2021-08-25 13:39 | disposition home or self-care (01) ==
PROVIDERS: Emergency Provider Emergency Medicine; PCP Family Medicine
DX: R10.13 Epigastric pain (principal); Z90.49 Acquired absence of other specified parts of digestive tract; K21.9 Gastro-esophageal reflux disease without esophagitis; I10 Essential (primary) hypertension; E66.9 Obesity, unspecified
CPT/HCPCS: 71045; 80053; 83690; 84484; 85025; 85379; 93005; 99284; J7030